=== PATIENT | male | born 1985 | race Caucasian/White ===

== ENCOUNTER → 2016-12-03 | Outpatient (REF) ==
[~2016-12-03] MED LIST: ADDERALL20 MG PO; ERY-TAB500 MG PO; KLONOPIN 1MG1 MG PO; KLONOPIN WAFERS1 MG PO; LOPRESSOR 225 MG/TAB PO; MOBIC 7.5MG7.5 MG PO; ROCEPHIN 2GM VIAL21 IJ
== END ==
LOC: COL.LAB 02:39
DX: Z53.9 Procedure and treatment not carried out, unspecified reason (principal)

== ENCOUNTER 2017-03-05 10:28 | Emergency (ER) | payer OTHER ==
[~2017-03-05] VITALS: Ht 180.3 cm; Wt 63.6 kg
[2017-03-05 11:32] LABS: BASO # 0.1 (0.0-0.2); BASO % 0.6 % (0.0-2.0); EOS # 0.1 (0.0-0.7); GRAN # 7.2 (1.4-6.5); GRAN % 73.8 % (42.2-75.2); HEMATOCRIT 43.2 % (42.0-52.0); HEMOGLOBIN 14.7 g/dl (13.5-18.0); LYMPH # 1.2 (1.2-3.4); LYMPH % 12.2 % (20.0-51.0); MEAN CELL VOLUME 89 fl (80.0-100.0); MEAN CORPUSCULAR HEMOGLOBIN 30 pg (27.0-31.0); MEAN CORPUSCULAR HGB CONC 34 g/dl (33.0-37.0); MEAN PLATELET VOLUME 10.3 fl (7.4-10.4); MONO # 1.2 (0.1-0.6); MONO % 12.1 % (1.7-9.3); PLATELET COUNT 321 K/mm3 (130-400); RED BLOOD COUNT 4.88 M/mm3 (4.20-5.60); REDCELL DISTRIBUTION WIDTH-CV 11.9 % (11.5-14.5); WHITE BLOOD COUNT 9.7 K/mm3 (4.8-10.8)
[2017-03-05 11:44] LABS: ADJUSTED CALCIUM 9.2 mg/dL (8.4-10.2); ALBUMIN 4.6 gm/dL (3.5-5.0); CALCIUM 9.7 mg/dL (8.4-10.2); CREATININE, serum 0.87 mg/dL (0.66-1.25); POTASSIUM 4.2 mmol/L (3.4-5.0); TOTAL PROTEIN 8.3 gm/dL (6.4-8.2)
[2017-03-05] MEDS ORDERED: MOBIC 7.5MG7.5 MG PO (12:07)
[2017-03-05 12:29] VITALS: BP 121/91; PULSE 82; TEMP 97.8
== END 2017-03-05 12:31 | disposition home or self-care (01) ==
LOC: COL.ER 10:28
PROVIDERS: Nurse Practitioner
DX: M94.0 Chondrocostal junction syndrome [Tietze] (principal); F90.9 Attention-deficit hyperactivity disorder, unspecified type
CPT/HCPCS: J1885; J2405; J7030

== ENCOUNTER 2017-03-11 22:30 | Inpatient (IN) | payer OTHER ==
[~2017-03-11] VITALS: Ht 180.3 cm; Wt 71.8 kg
[~2017-03-11 22:30] MED LIST changes: -ADDERALL20 MG PO; -ERY-TAB500 MG PO; -KLONOPIN 1MG1 MG PO; -KLONOPIN WAFERS1 MG PO; -LOPRESSOR 225 MG/TAB PO; -ROCEPHIN 2GM VIAL21 IJ
[2017-03-11] MEDS ORDERED: ADDERALL20 MG PO (22:37)
[2017-03-11] MEDS ORDERED: KLONOPIN WAFERS1 MG PO (22:37)
[2017-03-11] MEDS ORDERED: KLONOPIN 1MG1 MG PO (22:47)
[2017-03-11 23:16] LABS: BASO # 0.1 (0.0-0.2); BASO % 0.3 % (0.0-2.0); EOS # 0.2 (0.0-0.7); EOS % 1.1 % (0-4.0); GRAN # 15.6 (1.4-6.5); GRAN % 86.7 % (42.2-75.2); HEMOGLOBIN 13.3 g/dl (13.5-18.0); LYMPH # 0.7 (1.2-3.4); LYMPH % 3.7 % (20.0-51.0); MEAN CELL VOLUME 87 fl (80.0-100.0); MEAN CORPUSCULAR HEMOGLOBIN 30 pg (27.0-31.0); MEAN CORPUSCULAR HGB CONC 34 g/dl (33.0-37.0); MEAN PLATELET VOLUME 10.2 fl (7.4-10.4); MONO # 1.4 (0.1-0.6); MONO % 7.8 % (1.7-9.3); PLATELET COUNT 329 K/mm3 (130-400); RED BLOOD COUNT 4.48 M/mm3 (4.20-5.60); REDCELL DISTRIBUTION WIDTH-CV 11.8 % (11.5-14.5)
[2017-03-11 23:20] LABS: ALLEN TEST YES; ALLENS TEST RESULT PASS; ARTERIAL BLD GAS TCO2 CT 24.1; ARTERIAL BLOOD GAS BASE EXCESS -0.4 (-2-2); ARTERIAL BLOOD GAS PO2 79.9 mmHg (80-100); ARTERIAL BLOOD GAS pH 7.45 (7.35-7.45); ATS? YES
[2017-03-11 23:21] LABS: INR 1.5 (0.8-3.0); PROTHROMBIN TIME 16.5 SECONDS (9.7-12.8)
[2017-03-11 23:32] LABS: ADJUSTED CALCIUM 9.2 mg/dL (8.4-10.2); ALANINE AMINOTRANSFERASE 24 U/L (21-72); ALBUMIN 3.8 gm/dL (3.5-5.0); ALKALINE PHOSPHATASE 72 U/L (50-136); ANION GAP 13 mmol/L (7-16); BILIRUBIN,TOTAL 0.9 mg/dL (0.0-1.0); BLOOD UREA NITROGEN 9 mg/dL (9-20); CARBON DIOXIDE 27 mmol/L (22-30); CHLORIDE 100 mmol/L (98-107); CREATININE, serum 0.87 mg/dL (0.66-1.25); GLUCOSE 99 mg/dL (74-106); POTASSIUM 3.9 mmol/L (3.4-5.0); SODIUM 140 mmol/L (137-145); TOTAL PROTEIN 7.2 gm/dL (6.4-8.2)
[2017-03-11 23:46] LABS: TROPONIN-I < 0.012 ng/mL (0.000-0.034)
[2017-03-12] VITALS (106 sets, daily range): BP systolic 105–127; BP diastolic 45–99; PULSE 104–134; TEMP 98.1–99.8; O2SAT 95–100
[2017-03-12 00:05] LABS: PH 7 (5-8); SQUAMOUS EPITHELIAL None Seen /hpf; URINE APPEARANCE Clear; URINE BACTERIA None Seen /hpf; URINE BILIRUBIN Negative (NEGATIVE); URINE BLOOD Negative (NEGATIVE); URINE COLOR Yellow; URINE GLUCOSE Negative (NEGATIVE); URINE KETONE Negative (NEGATIVE); URINE RBC None Seen /hpf; URINE UROBILINOGEN Negative (NEGATIVE); URINE WBC 0-2 /hpf
[2017-03-12 00:26] LABS: AMPHETAMINE URINE POSITIVE; BARBITURATES URINE NEGATIVE; BENZODIAZEPINES URINE NEGATIVE; BUPRENORPHINE URINE NEGATIVE; METHADONE URINE NEGATIVE; OPIATES URINE NEGATIVE; OXYCODONE URINE NEGATIVE; PHENCYCLIDINE URINE NEGATIVE; PROPOXYPHENE URINE NEGATIVE; THC CANNABINOIDS URINE NEGATIVE
[2017-03-12] MEDS ORDERED: ROCEPHIN 2GM VIAL21 IJ (02:30)
[2017-03-12] MEDS ORDERED: ERY-TAB500 MG PO (02:30)
[2017-03-12 16:43] LABS: ARTERIAL BLD GAS TCO2 CT 24.3; ARTERIAL BLOOD GAS BASE EXCESS -0.2 (-2-2); ARTERIAL BLOOD GAS HCO3 23.3 meq/L (22-26); ARTERIAL BLOOD GAS PHT 7.45 C (7.35-7.45); ARTERIAL BLOOD GAS PO2 91.1 mmHg (80-100); ARTERIAL BLOOD GAS PO2T 91.1 (80-100); ARTERIAL BLOOD GAS pH 7.45 (7.35-7.45); OXYHEMOGLOBIN 96.5 %
[2017-03-12 16:44] LABS: ALLEN TEST YES; ALLENS TEST RESULT PASS; ATS? YES
[2017-03-12 20:31] LABS: HEMATOCRIT 35.3 % (42.0-52.0); HEMOGLOBIN 11.9 g/dl (13.5-18.0); MEAN CELL VOLUME 89 fl (80.0-100.0); MEAN CORPUSCULAR HEMOGLOBIN 30 pg (27.0-31.0); MEAN CORPUSCULAR HGB CONC 34 g/dl (33.0-37.0); MEAN PLATELET VOLUME 10.5 fl (7.4-10.4); PLATELET COUNT 324 K/mm3 (130-400); RED BLOOD COUNT 3.97 M/mm3 (4.20-5.60); REDCELL DISTRIBUTION WIDTH-CV 11.9 % (11.5-14.5); WHITE BLOOD COUNT 19.1 K/mm3 (4.8-10.8)
[2017-03-12 20:32] LABS: ADD PATHOLOGY DIFF REVIEW NO
[2017-03-12 20:43] LABS: CREATININE, serum 0.8 mg/dL (0.66-1.25); MAGNESIUM 1.8 mg/dL (1.6-2.3); PHOSPHOROUS 2.7 mg/dL (2.5-4.5); POTASSIUM 3.8 mmol/L (3.4-5.0)
[2017-03-12 21:10] LABS: BAND 42 % (0-10); NEUTROPHILS 44 % (42.0-75.2); TOTAL CELLS COUNTED 100
[2017-03-12 22:17] LABS: C-REACTIVE PROTEIN 33.4 mg/dL (0.0-0.9)
[2017-03-13] VITALS (1095 sets, daily range): BP systolic 114–132; BP diastolic 71–85; PULSE 101–123; TEMP 97–99; O2SAT 71–100
[2017-03-13 05:56] LABS: BASO % 0.2 % (0.0-2.0); EOS # 0.2 (0.0-0.7); EOS % 1.2 % (0-4.0); GRAN # 13.6 (1.4-6.5); GRAN % 84.5 % (42.2-75.2); HEMATOCRIT 38.4 % (42.0-52.0); HEMOGLOBIN 12.5 g/dl (13.5-18.0); LYMPH # 0.8 (1.2-3.4); MEAN CELL VOLUME 91 fl (80.0-100.0); MEAN CORPUSCULAR HEMOGLOBIN 30 pg (27.0-31.0); MEAN CORPUSCULAR HGB CONC 33 g/dl (33.0-37.0); MEAN PLATELET VOLUME 10.3 fl (7.4-10.4); MONO # 1.3 (0.1-0.6); PLATELET COUNT 344 K/mm3 (130-400); RED BLOOD COUNT 4.24 M/mm3 (4.20-5.60); REDCELL DISTRIBUTION WIDTH-CV 12.1 % (11.5-14.5); WHITE BLOOD COUNT 16.1 K/mm3 (4.8-10.8)
[2017-03-13 11:55] LABS: GLUCOSE,PLEURAL FLUID 35 mg/dL
[2017-03-13 12:00] LABS: PLEURAL FLUID - PMN 97.9 % (0-25)
[2017-03-13 12:04] LABS: PLEURAL FLUID LEFT SIDE
[2017-03-13 12:10] LABS: PLEURAL FLUID APPEARANCE CLOUDY; PLEURAL FLUID COLOR AMBER
[2017-03-14] VITALS (429 sets, daily range): BP systolic 118–134; BP diastolic 66–89; PULSE 109–128; TEMP 97.3–99.4; O2SAT 82–100
[2017-03-14 05:51] LABS: BASO % 0.2 % (0.0-2.0); EOS # 0.3 (0.0-0.7); EOS % 2.2 % (0-4.0); GRAN # 9.6 (1.4-6.5); GRAN % 79.2 % (42.2-75.2); LYMPH % 8.1 % (20.0-51.0); MEAN CELL VOLUME 88 fl (80.0-100.0); MEAN CORPUSCULAR HEMOGLOBIN 30 pg (27.0-31.0); MEAN CORPUSCULAR HGB CONC 34 g/dl (33.0-37.0); MEAN PLATELET VOLUME 10.4 fl (7.4-10.4); MONO # 1.2 (0.1-0.6); MONO % 9.5 % (1.7-9.3); PLATELET COUNT 356 K/mm3 (130-400); RED BLOOD COUNT 4.05 M/mm3 (4.20-5.60); REDCELL DISTRIBUTION WIDTH-CV 12.2 % (11.5-14.5); WHITE BLOOD COUNT 12.2 K/mm3 (4.8-10.8)
[2017-03-14 05:54] LABS: HEMATOCRIT 35.8 % (42.0-52.0)
[2017-03-14 06:20] LABS: CALCIUM 8.2 mg/dL (8.4-10.2); CREATININE, serum 0.76 mg/dL (0.66-1.25); MAGNESIUM 1.8 mg/dL (1.6-2.3); PHOSPHOROUS 2.9 mg/dL (2.5-4.5); POTASSIUM 3.5 mmol/L (3.4-5.0)
[2017-03-15 01:55] VITALS: BP 130/70; PULSE 121; TEMP 98.9
[2017-03-15 05:58] VITALS: BP 122/69; PULSE 108; TEMP 98.9
[2017-03-15 10:26] VITALS: BP 1023/69; BP 123/69; PULSE 115; TEMP 99.1
[2017-03-15 13:48] VITALS: BP 136/93; PULSE 116; TEMP 98.3
[2017-03-15 15:17] LABS: BASO # 0.1 (0.0-0.2); BASO % 0.5 % (0.0-2.0); EOS # 0.2 (0.0-0.7); EOS % 1.7 % (0-4.0); GRAN # 6.8 (1.4-6.5); GRAN % 69.9 % (42.2-75.2); LYMPH # 1.4 (1.2-3.4); MEAN CELL VOLUME 87 fl (80.0-100.0); MEAN CORPUSCULAR HEMOGLOBIN 30 pg (27.0-31.0); MEAN CORPUSCULAR HGB CONC 34 g/dl (33.0-37.0); MEAN PLATELET VOLUME 9.6 fl (7.4-10.4); MONO # 1.2 (0.1-0.6); MONO % 12.5 % (1.7-9.3); PLATELET COUNT 382 K/mm3 (130-400); RED BLOOD COUNT 4.05 M/mm3 (4.20-5.60); REDCELL DISTRIBUTION WIDTH-CV 12.3 % (11.5-14.5); WHITE BLOOD COUNT 9.7 K/mm3 (4.8-10.8)
[2017-03-15 15:18] LABS: HEMATOCRIT 35.2 % (42.0-52.0)
[2017-03-15 17:23] VITALS: BP 112/64; PULSE 113; TEMP 98.4
[2017-03-15 21:18] VITALS: BP 120/67; PULSE 119; TEMP 99.4
[2017-03-16 04:56] VITALS: BP 134/81; PULSE 115; TEMP 98.1
[2017-03-16 07:07] LABS: MEAN CELL VOLUME 87 fl (80.0-100.0); MEAN CORPUSCULAR HGB CONC 34 g/dl (33.0-37.0); MEAN PLATELET VOLUME 9.9 fl (7.4-10.4); PLATELET COUNT 417 K/mm3 (130-400); RED BLOOD COUNT 4.02 M/mm3 (4.20-5.60); REDCELL DISTRIBUTION WIDTH-CV 12.4 % (11.5-14.5); WHITE BLOOD COUNT 8.8 K/mm3 (4.8-10.8)
[2017-03-16 07:25] LABS: HEMATOCRIT 35.1 % (42.0-52.0); HEMOGLOBIN 11.9 g/dl (13.5-18.0); MEAN CORPUSCULAR HEMOGLOBIN 30 pg (27.0-31.0)
[2017-03-16] MEDS ORDERED: LOPRESSOR 225 MG/TAB PO (09:09)
[2017-03-16 10:24] VITALS: BP 123/65; PULSE 105; TEMP 98.8
== END 2017-03-16 13:54 | disposition home or self-care (01) | DRG 177 ==
LOC: COL.ER → MEDICAL 03-12 00:24 → ICU 03-12 00:24 → MEDICAL 03-12 09:31 → IMCU 03-12 18:39 → ICU 03-12 20:00 → SURG 03-14 17:15
PROVIDERS: Emergency Medicine; Internal Medicine; Internal Medicine Pulmonary Disease; Physician Assistant; Surgery
PROC: 0W9B30Z Drainage of Left Pleural Cavity with Drainage Device, Percutaneous Approach (ICD-10-PCS; principal; 2017-03-12 21:30)
DX: J86.9 Pyothorax without fistula (principal); A41.9 Sepsis, unspecified organism; J18.9 Pneumonia, unspecified organism; F90.9 Attention-deficit hyperactivity disorder, unspecified type
CPT/HCPCS: 99222-AI; 99233-AI; 99239; A7048; A9284; J0456; J0696; J1170; J1644; J1885; J1956; J2185; J2250; J2704; J3010; J3370; J7030; J7050; Q9967

== ENCOUNTER 2018-03-04 10:00 | Outpatient (RCR) | payer OTHER ==
[~2018-03-04 10:00] MED LIST changes: +ADDERALL20 MG PO; +ERY-TAB500 MG PO; +KLONOPIN 1MG1 MG PO; +KLONOPIN WAFERS1 MG PO; +LOPRESSOR 225 MG/TAB PO; +ROCEPHIN 2GM VIAL21 IJ
== END 2018-03-05 09:47 | disposition home or self-care (01) ==
LOC: WSOH 10:00
DX: M65.4 Radial styloid tenosynovitis [de Quervain] (principal)
CPT/HCPCS: 24091; A6549